=== PATIENT | male | born 1960 | race Caucasian/White ===

== ENCOUNTER 2019-07-07 11:05 | Emergency (ER) | payer BC, MEDICARE ==
[2019-07-07] MEDS ORDERED: CLONIDINE HCL 0.1 MG TABLET PO ONE (11:15)
--- NOTE | 2019-07-07 11:28 | Emergency Department Record ---
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 No head , No chest pain and no dyspnea and he smokes 1.5 ppd of cigs and drinks one coke per day and no alcool. currently taking losartan 50 mg per day and toprolol succinate 100 mg per day History of Same: Yes History of Trauma: No Improves With: Nothing Worsens With: Nothing Associated Symptoms: Denies other symptoms - Related Data Home Medications Medication Instructions Recorded Confirmed Last Taken Aspirin Chewable 81 mg PO DAILY 07/07/19 07/07/19 07/07/19 Cholecalciferol (Vitamin D3) 2,000 unit PO DAILY 07/07/19 07/07/19 07/07/19 [Vitamin D3] Losartan Potassium 25 mg PO DAILY 07/07/19 07/07/19 07/07/19 Metoprolol Succinate 50 mg PO BID 07/07/19 07/07/19 07/07/19 Mometasone/Formoterol [Dulera 100 13 gm IH DAILY 07/07/19 07/07/19 07/07/19 Mcg/5 Mcg Inhaler] Previous Rx's Medication Instructions Recorded Clonidine HCl 0.1 mg PO TID #90 tablet 07/07/19 Allergies Allergy/AdvReac Type Severity Reaction Status Date / Time naproxen [From Aleve] AdvReac sensitive Verified 07/07/19 11:10 stomach Travel Screening - Travel/Exposure Within Last 30 Days Have you traveled within the last 30 days?: No Review of Systems Reviewed: No additional complaints except as noted below Constitutional: Reports: As per HPI. Denies: Chills, Fever, Malaise, Night sweats, Weakness, Weight change Eyes: Reports: As per HPI. Denies: Eye discharge, Eye pain, Photophobia, Vision change ENT: Reports: As per HPI. Denies: Congestion, Dental pain, Ear pain, Epistaxis, Hearing loss, Throat pain Respiratory: Reports: As per HPI. Denies: Cough, Dyspnea, Hemoptysis, Stridor, Wheezes Cardiovascular: Reports: As per HPI. Denies: Arrhythmia, Chest pain, Dyspnea on exertion, Edema, Murmurs, Orthopnea, Palpitations, Paroxysmal nocturnal dyspnea, Rheumatic Fever, Syncope Endocrine: Reports: As per HPI. Denies: Fatigue, Heat or cold intolerance, Polydipsia, Polyuria Gastrointestinal: Reports: As per HPI. Denies: Abdominal pain, Constipation, Diarrhea, Hematemesis, Hematochezia, Melena, Nausea, Vomiting Genitourinary: Reports: As per HPI. Denies: Dysuria, Frequency, Hematuria, Incontinence, Retention, Testicular pain, Testicular mass, Urgency Musculoskeletal: Reports: As per HPI. Denies: Arthralgia, Back pain, Gout, Joint swelling, Myalgia, Neck pain Skin: Reports: As per HPI. Denies: Bruising, Change in color, Change in hair/nails, Lesions, Pruritus, Rash Neurological: Reports: As per HPI. Denies: Abnormal gait, Confusion, Headache, Numbness, Paresthesias, Seizure, Tingling, Tremors, Vertigo, Weakness Psychiatric: Reports: As per HPI. Denies: Anxiety, Auditory hallucinations, Depression, Homicidal thoughts, Suicidal thoughts, Visual hallucinations Hematological/Lymphatic: Reports: As per HPI. Denies: Anemia, Blood Clots, Easy bleeding, Easy bruising, Swollen glands Past Medical History - SOCIAL HISTORY Smoking Status: Current every day smoker Alcohol Use: None Drug Use: Heavy Drug Use Detail:: Marijuana - RESPIRATORY Hx Respiratory Disorders: Yes Hx COPD: Yes - CARDIOVASCULAR Hx Cardio Disorders: Yes Hx Hypertension: Yes - NEURO Hx Neuro Disorders: Yes Hx CVA: Yes - GI Hx GI Disorders: No - Hx Genitourinary Disorders: No - ENDOCRINE Hx Endocrine Disorders: No - MUSCULOSKELETAL Hx Musculoskeletal Disorders: Yes Hx Arthritis: Yes - PSYCH Hx Psych Problems: No - HEMATOLOGY/ONCOLOGY Hx Hematology/Oncology Disorders: No Family Medical History Any Significant Family History?: No Physical Exam - General General Appearance: Alert, Oriented x3, Cooperative, No acute distress - Head Head exam: Normal inspection - Eye Eye exam: Normal appearance, PERRL Pupils: Normal accommodation - ENT ENT exam: Normal exam, Mucous membranes moist, Normal external ear exam, Normal orophraynx, TM's normal bilaterally Ear exam: Normal external inspection. negative: External canal tenderness Nasal Exam: Normal inspection. negative: Discharge, Sinus tenderness Mouth exam: Normal external inspection, Tongue normal Teeth exam: Normal inspection. negative: Dental caries Throat exam: Normal inspection. negative: Tonsillar erythema, Tonsillar exudate - Neck Neck exam: Normal inspection, Full ROM. negative: Tenderness - Respiratory Respiratory exam: Normal lung sounds bilaterally. negative: Respiratory distress - Cardiovascular Cardiovascular Exam: Regular rate, Normal rhythm, Normal heart sounds - GI/Abdominal GI/Abdominal exam: Soft, Normal bowel sounds. negative: Tenderness - Rectal Rectal exam: Deferred - exam: Deferred - Extremities Extremities exam: Normal inspection, Full ROM, Normal capillary refill. negati ve: Tenderness - Back Back exam: Reports: Normal inspection, Full ROM. Denies: Muscle spasm, Rash noted, Tenderness - Neurological Neurological exam: Alert, Normal gait, Oriented X3, Reflexes normal - Psychiatric Psychiatric exam: Normal affect, Normal mood - Skin Skin exam: Dry, Intact, Normal color, Warm Course Vital Signs 07/07/19 11:15 Temperature 98.4 F Pulse Rate 77 Respiratory 20 Rate Blood Pressure 183/143 Pulse Ox 99 - Reevaluation(s) Reevaluation #1: 07/07/19 11:49 BP is coming down nicely 160/99 Medical Decision Making - Lab Data Result diagrams: 07/07/19 11:25 07/07/19 11:25 Disposition Clinical Impression: Hypertension Qualifiers: Hypertension type: essential hypertension Qualified Code(s): I10 - Essential (primary) hypertension Disposition: Home, Self-Care Condition: (1) Good Instructions: Hypertension (ED) Additional Instructions: follow up with his primary Dr next week continue current medications add clonidine 0.1 mg TID Prescriptions: Clonidine HCl 0.1 mg PO TID #90 tablet Forms: Patient Portal Access Time of Disposition: 11:52 Quality - Quality Measures Quality Measures: N/A - Blood Pressure Screening Does Patient Have Any of the Following: No, Active Dx of HTN Blood Pressure Classification: Hypertensive Reading Systolic Measurement: 183 Diastolic Measurement: 143 Screening for High Blood Pressure: Patient Exclusion, Hx of HTN [[id number]]
[2019-07-07 12:08] LABS: ABSOLUTE NEUTROPHIL COUNT 7.18; BASO % 0.3 % (0-6); EOS % 2.5 % (0-6); GRAN % 65.5 % (47-80); HEMATOCRIT 45.4 % (42.0-52.0); HEMOGLOBIN 14.6 gm/dl (14.0-18.0); LYMPH % 22.7 % (16-45); MEAN CELL VOLUME 97.2 fl (81-97); MEAN CORPUSCULAR HEMOGLOBIN 31.3 pg (27-33); MEAN CORPUSCULAR HGB CONC 32.2 g/dl (32-36); MEAN PLATELET VOLUME 9.1 fl (7.4-10.4); PLATELET COUNT 264 K/uL (130-400); RED BLOOD COUNT 4.67 M/uL (4.40-5.70)
[2019-07-07 12:21] LABS: BLOOD UREA NITROGEN 13 mg/dL (6-20); CREATININE 0.8 mg/dL (0.7-1.2); EST GLOMERULAR FILTRATION RATE > 60 mL/min
[2019-07-07 12:24] LABS: GLUCOSE,RANDOM 87 mg/dL (74-109)
== END 2019-07-07 13:36 | disposition home or self-care (01) ==
LOC: ER 11:05
DX: I10 Essential (primary) hypertension (principal); Z86.73 Personal history of transient ischemic attack (TIA), and cerebral infarction without residual deficits; M06.9 Rheumatoid arthritis, unspecified; F17.210 Nicotine dependence, cigarettes, uncomplicated
CPT/HCPCS: 80048; 85025; 99284